=== PATIENT | male | born 2000 ===

== ENCOUNTER 2024-04-26 15:45 | Outpatient (AMB) | payer MEDICAID, SELFPAY ==
--- NOTE | 2024-04-26 15:46 | MHC.OFFWIV ---
Intake Vital Signs 04/26/24 15:49 Height 5 ft 7 in Weight 181 lb BMI 28.3 BP 122/76 Blood Pressure Location Rt brachial Position Sitting Pulse 72 Pulse Source Pulse Oximeter Temp 97.9 F Temp Source Oral Pulse Oximetry (%) 98 Intake Visit Reasons: [employer] pain on testicles Intake Note: pt is here for due to painful testicles Patient Tobacco Use Status: Never used Tobacco Allergies No Known Allergies Allergy (Verified 04/26/24 15:47) Do you need a note to return to daycare/school/sports/work: No HPI HPI Comments History of Present Illness Details Patient is a 23-year-old male complaining of a burning sensation in his left testicle for the last 10 days. He states that it resolved on its own for a few days and then came back 3 days ago. He states that he has been sexually active with the same person for a long time and they always use a condom, every single time. He does endorse some low back pain as well. He denies any fevers, nausea, vomiting, abdominal pain, pain in his testicles, discharge from his penis, pain with urination or blood in his urine. [facility] Social History Patient Tobacco Use Status: Never used Tobacco Review of Systems Const All systems reviewed & are unremarkable except as noted in HPI and below Physical Exam Vital Signs: Last Vital Signs Temp 97.9 F 04/26/24 15:49 Pulse 72 04/26/24 15:49 BP 122/76 04/26/24 15:49 Pulse Ox 98 04/26/24 15:49 BMI result Body Mass Index 28.3 Const General: cooperative, healthy appearing, comfortable, no acute distress and well developed Orientation/consciousness: patient oriented x3 Limitations: no limitations HEENT Head: Yes normal to inspection Ears: hearing grossly normal bilaterally General nose exam: Normal external nose present Face and sinus: Yes normal facial exam Eyes General: appearance normal, both eyes and all related structures Neck Neck: Yes normal visual inspection and Yes full ROM Resp Effort & Inspection: normal respiratory effort and able to speak in complete sentences Other: Patient declined employment specialist Male General Exam: Yes normal external exam, No edema, No erythema and No Genital lesions present Penis: normal penis, uncircumcised, no condylomata, no ecchymosis, not edematous, not erythematous, no masses, no swelling and No Genital lesions present Scrotum: scrotum normal Testes: Testes normal, testicular lie normal, epididymides normal, no blue dot sign, not enlarged, no epidiymal tenderness, no testicular swelling and no testicular tenderness Skin General skin exam: no rashes or lesions noted Neuro General: patient oriented x3 Extrem General: Yes normal to inspection Results AMB Urinalysis, Automated UA Leukoctes 0 Sonia/uL Last Edit by Regan Glass CMA on 04/26/24 16:02 UA Nitrite Negative Last Edit by Regan Glass, WANG on 04/26/24 16:02 UA Urobilinogen 0.2 mg/dL Last Edit by Regan Glass, WANG on 04/26/24 16:02 UA Protein 0 mg/dL Last Edit by Regan Glass, WANG on 04/26/24 16:02 UA pH 6.0 Last Edit by Regan Glass, WANG on 04/26/24 16:02 UA Blood 0 Sergio/uL Last Edit by Regan Glass, WANG on 04/26/24 16:02 UA Specific [place] 1.025 Last Edit by Regan Glass CMA on 04/26/24 16:02 UA Ketone Negative Last Edit by Regan Glass CMA on 04/26/24 16:02 UA Bilirubin 0 mg/dL Last Edit by Regan Glass, WANG on 04/26/24 16:02 UA Glucose 0 mg/dL Last Edit by Regan Glass CMA on 04/26/24 16:02 Assessment & Plan Assessment & Plan (1) Testicle trouble: Code(s): N50.9 - Disorder of male genital organs, unspecified Plan: Urinalysis was negative for infection, sent gonorrhea chlamydia testing as well as a culture on the urine. Patient is very insistent he uses a condom for every sexual interaction however it could be gonorrhea or chlamydia. With a low back pain, I will treat for UTI. Plan See above Orders: Orders Urine Culture Today M54.50 - Low back pain, unspecified AMB Urinalysis Automated Today Z13.9 - Encounter for screening, unspecified CT NG by PCR Today M54.50 - Low back pain, unspecified Medications: New cefuroxime axetil 500 mg PO Q12H 10 tabs 0RF Coding Level of Care Code New Pt Level 4 (54154) Diagnoses Testicle trouble N50.9
[2024-04-26 15:49] VITALS: BP 122/76; PULSE 72; TEMP 36.6; O2SAT 98; BMI 28.3
== END 2024-04-26 16:32 | disposition home or self-care (01) ==
PROVIDERS: PCP Pediatrics; Visit Provider Physician Assistant
DX: N50.9 Disorder of male genital organs, unspecified (principal); Z13.9 Encounter for screening, unspecified

== ENCOUNTER 2024-04-26 15:45 | Outpatient (REF) | payer MEDICAID, SELFPAY | END 2024-04-26 15:46 | disposition home or self-care (01) | LOC: HO.LAB 15:45 | PROVIDERS: PCP Pediatrics; Visit Provider Physician Assistant | DX: M54.50 Low back pain, unspecified (principal); N50.9 Disorder of male genital organs, unspecified | CPT/HCPCS: 81003; 87086; 87491; 87591; 99202 ==

== ENCOUNTER → 2024-06-20 10:32 | Outpatient (BNV) | payer OTHER, SELFPAY | PROVIDERS: Emergency Provider Emergency Medicine; Visit Provider Internal Medicine | DX: R07.9 Chest pain, unspecified (principal) | CPT/HCPCS: 93010 ==

== ENCOUNTER → 2024-06-20 11:12 | Outpatient (BNV) | payer OTHER, SELFPAY | PROVIDERS: Emergency Provider Emergency Medicine; Visit Provider Radiology Diagnostic Radiology | DX: R07.9 Chest pain, unspecified (principal) | CPT/HCPCS: 71045 ==